=== PATIENT | female | born 1975 | race African-American/Black ===

== ENCOUNTER 2020-12-30 23:50 | Inpatient (IN) | payer OTHER ==
[~2020-12-30] VITALS: Ht 170.2 cm; Wt 73.5 kg
[2020-12-30] MEDS ORDERED: CHILDREN'S ASPI81 MG (23:59)
[2020-12-30] MEDS ORDERED: COZAAR100 MG (23:59)
[2020-12-30] MEDS ORDERED: LANTUS SOL100 UNIT/1 (23:59)
[2020-12-30] MEDS ORDERED: HUMALOG100 UNIT/2 (23:59)
[2020-12-30] MEDS ORDERED: LEVOTHYROXINE25 MCG (23:59)
[2020-12-31] MEDS ORDERED: LIPITOR20 MG (00:01)
[2020-12-31] MEDS ORDERED: HYDROCHLOROTH12.5 MG (00:01)
[2020-12-31] MEDS ORDERED: GLYCOTROL CAPS1 EACH (00:02)
[2021-01-25] MEDS ORDERED: LIPITOR20 MG PO (09:46)
[2021-01-25] MEDS ORDERED: AMLODIPINE BESYL5 MG PO (09:46)
[2021-01-25] MEDS ORDERED: TOPROL XL50 M1 PO (09:47)
[2021-01-25] MEDS ORDERED: HYDRALAZINE HCL25 MG PO (09:47)
[2021-01-25] MEDS ORDERED: KETO10TA2 PO (09:48)
== END 2021-01-25 10:26 | disposition home or self-care (01) | DRG 240 ==
LOC: ER 23:50 → SURH 12-31 14:51 → MEDI 12-31 14:51 → SEC-K 12-31 14:51 → SURH 12-31 15:32 → MEDI 01-04 16:45
PROVIDERS: Specialist; ADMIT Internal Medicine; ATTEND Internal Medicine
PROC: 0J9R3ZX Drainage of Left Foot Subcutaneous Tissue and Fascia, Percutaneous Approach, Diagnostic (ICD-10-PCS; 2021-01-04)
PROC: 02HV33Z Insertion of Infusion Device into Superior Vena Cava, Percutaneous Approach (ICD-10-PCS; 2021-01-05)
PROC: 30233N1 Transfusion of Nonautologous Red Blood Cells into Peripheral Vein, Percutaneous Approach (ICD-10-PCS; 2021-01-07)
PROC: 3E0F7SF Introduction of Other Gas into Respiratory Tract, Via Natural or Artificial Opening (ICD-10-PCS; 2021-01-09)
PROC: 0Y6N0Z9 Detachment at Left Foot, Partial 1st Ray, Open Approach (ICD-10-PCS; principal; 2021-01-15 16:00)
DX: E11.52 Type 2 diabetes mellitus with diabetic peripheral angiopathy with gangrene (principal); I96 Gangrene, not elsewhere classified; N17.8 Other acute kidney failure; L02.612 Cutaneous abscess of left foot; L03.116 Cellulitis of left lower limb; E03.8 Other specified hypothyroidism; I10 Essential (primary) hypertension; Z91.14 Patient's other noncompliance with medication regimen; Z20.822 Contact with and (suspected) exposure to COVID-19; Z79.4 Long term (current) use of insulin; E11.65 Type 2 diabetes mellitus with hyperglycemia; D50.8 Other iron deficiency anemias; B95.4 Other streptococcus as the cause of diseases classified elsewhere; R00.0 Tachycardia, unspecified

== ENCOUNTER 2021-02-28 08:06 | Outpatient (CLI) | payer OTHER ==
[~2021-02-28 08:06] MED LIST: AMLODIPINE BESYL5 MG PO; CHILDREN'S ASPI81 MG; COZAAR100 MG; GLYCOTROL CAPS1 EACH; HUMALOG100 UNIT/2; HYDRALAZINE HCL25 MG PO; HYDROCHLOROTH12.5 MG; KETO10TA2 PO; LANTUS SOL100 UNIT/1; LEVOTHYROXINE25 MCG; LIPITOR20 MG; LIPITOR20 MG PO; TOPROL XL50 M1 PO
== END 2021-02-28 08:15 | disposition home or self-care (01) ==
LOC: SONOGRAMA 08:06
PROVIDERS: ATTEND Internal Medicine Nephrology
DX: R10.84 Generalized abdominal pain (principal); R80.8 Other proteinuria; I10 Essential (primary) hypertension

== ENCOUNTER 2022-02-04 13:04 | Inpatient (IN) | payer OTHER ==
[~2022-02-04] VITALS: Ht 165.1 cm; Wt 81.6 kg
[2022-02-04] MEDS ORDERED: CHILDREN'S ASPI81 MG PO (14:18)
== END 2022-02-07 16:43 | disposition home or self-care (01) | DRG 638 ==
LOC: ER 13:04 → MEDJ 21:30
PROVIDERS: ADMIT Internal Medicine; ATTEND Internal Medicine
PROC: B54CZZZ Ultrasonography of Left Lower Extremity Veins (ICD-10-PCS; principal; 2022-02-04)
PROC: B44GZZZ Ultrasonography of Left Lower Extremity Arteries (ICD-10-PCS; 2022-02-04)
DX: E11.628 Type 2 diabetes mellitus with other skin complications (principal); L03.116 Cellulitis of left lower limb; N17.8 Other acute kidney failure; L03.032 Cellulitis of left toe; R60.0 Localized edema; E78.49 Other hyperlipidemia; E03.8 Other specified hypothyroidism; D72.828 Other elevated white blood cell count; Z79.4 Long term (current) use of insulin

== ENCOUNTER 2022-05-29 15:53 | Emergency (ER) | payer OTHER ==
[~2022-05-29] VITALS: Ht 165.1 cm; Wt 80.7 kg
[~2022-05-29 15:53] MED LIST changes: +CHILDREN'S ASPI81 MG PO
== END 2022-05-29 20:59 | disposition home or self-care (01) ==
LOC: ER 15:53
DX: R05.8 Other specified cough (principal); Z20.822 Contact with and (suspected) exposure to COVID-19; Z88.0 Allergy status to penicillin

== ENCOUNTER 2022-11-14 10:15 | Emergency (ER) | payer OTHER ==
[~2022-11-14] VITALS: Ht 165.1 cm; Wt 82.1 kg
[2022-11-14] MEDS ORDERED: LANTUS SOL100 UNIT/1 SUBCUTANEO (11:50)
== END 2022-11-14 15:50 | disposition home or self-care (01) ==
LOC: ER 10:15
PROVIDERS: Emergency Medicine
DX: I10 Essential (primary) hypertension (principal); E11.9 Type 2 diabetes mellitus without complications; Z79.4 Long term (current) use of insulin; Z88.0 Allergy status to penicillin

== ENCOUNTER → 2023-04-16 10:30 | Outpatient (CLI) | payer OTHER ==
[~2023-04-16 10:30] MED LIST changes: +LANTUS SOL100 UNIT/1 SUBCUTANEO; +LOSARTAN POTAS100 MG PO; +METOPROLOL SUCC50 MG PO; +NORVASC5 MG PO; +PIOGLITAZONE HC15 MG PO
== END | disposition home or self-care (01) ==
LOC: NUCLEAR 10:30
PROVIDERS: ATTEND Specialist
DX: I73.9 Peripheral vascular disease, unspecified (principal)

== ENCOUNTER 2023-04-17 10:33 | Outpatient (CLI) | payer OTHER ==
[~2023-04-17 10:33] MED LIST changes: -LOSARTAN POTAS100 MG PO; -METOPROLOL SUCC50 MG PO; -NORVASC5 MG PO; -PIOGLITAZONE HC15 MG PO
[2023-04-18] MEDS ORDERED: METOPROLOL SUCC50 MG PO (12:41)
[2023-04-18] MEDS ORDERED: NORVASC5 MG PO (12:42)
[2023-04-18] MEDS ORDERED: PIOGLITAZONE HC15 MG PO (12:42)
[2023-04-18] MEDS ORDERED: LOSARTAN POTAS100 MG PO (12:43)
== END 2023-04-17 10:34 | disposition home or self-care (01) ==
LOC: NUCLEAR 10:33
PROVIDERS: ATTEND Specialist
DX: I87.2 Venous insufficiency (chronic) (peripheral) (principal)

== ENCOUNTER → 2023-04-18 | Emergency (ER) | payer OTHER ==
[~2023-04-18] VITALS: Ht 170.2 cm; Wt 81.6 kg
[~2023-04-18] MED LIST changes: +LOSARTAN POTAS100 MG PO; +METOPROLOL SUCC50 MG PO; +NORVASC5 MG PO; +PIOGLITAZONE HC15 MG PO
== END | disposition left against medical advice (07) ==
LOC: ER 11:49
DX: Z53.21 Procedure and treatment not carried out due to patient leaving prior to being seen by health care provider (principal)

== ENCOUNTER 2024-12-23 09:38 | Inpatient (IN) | payer OTHER ==
[~2024-12-23] VITALS: Ht 162.6 cm; Wt 86.2 kg
[2024-12-23] MEDS ORDERED: LABETALOL HCL 20MG/4ML SYRINGE IV ONE (10:00)
[2024-12-23] MEDS ORDERED: COZAAR100 MG PO (10:02)
[2024-12-23] MEDS ORDERED: LABETALOL HCL 100 MG/20 ML ML ONE (10:02)
[2024-12-23] MEDS ORDERED: HUMALOG100 UNIT/2 SQ (10:03)
[2024-12-23] MEDS ORDERED: LANTUS SOL100 UNIT/1 SQ (10:03)
--- NOTE | 2024-12-23 10:04 | NUR ---
PACIENTE ALERTA Y ORIENTADA X3 QUIEN SE ENCONTRABA EN LA OFICINA MEDICA CUANDO LE TOMARON LA PRESION Y LA MISMA SE ENCONTRABA ELEVADA. PACIENTE NO PRESENTA DOLOR DE JASMEET, NI DOLOR DE PECHO, NI NAUCEAS. SE LE REALIZA EKG, SE LE PRESENTA A DR MACKEY Y SE UBICA PACIENTE EN CAMA, SE CONECTA A MONITOR CARDIACO.
[2024-12-23] MEDS ORDERED: INSULIN REGULAR, HUMAN 1,000 UNIT/10 ML UNITS IV ONE (10:15)
--- NOTE | 2024-12-23 10:33 | NUR ---
PTE EVALUADA POR EL VALENTINA PRESTON QUIEN ORDENA TRATAMEINTO LA CUAL SE EJECUTA. SE MANTIENE BAJO OBSERVACION.
[2024-12-23 10:37] LABS: BASO % 0.3 % (0.1-1.2); EOS # 0.20 (0.04-0.54); EOS % 2.1 % (0.7-7.0); LYMPH # 2.08 (1.18-3.74); LYMPH % 21.7 % (19.3-53.1); MONO # 0.78 (0.24-0.82); MONO % 8.1 % (4.7-12.5); NEUT # 6.44 (1.56-6.13); NEUT % 67.3 % (34.0-71.1); RED CELL DISTRIBUTION WIDTH 13.4 % (11.6-14.4)
[2024-12-23 10:58] LABS: INR 1.05
[2024-12-23] MEDS ORDERED: NITROGLYCERIN IN 5 % DEXTROSE 250 ML IV SCH (11:30)
[2024-12-23] MEDS ORDERED: ASPIRIN 325 MG TABLET PO ONE (11:30)
[2024-12-23] MEDS ORDERED: NITROGLYCERIN IN 5 % DEXTROSE 50 MG/250 ML BOTTLE IV ONE (11:35)
[2024-12-23 11:38] LABS: ALT/SGPT 30.0 U/L (12-78); AST/SGOT 24.0 U/L (15-37); BILIRUBIN TOTAL 0.21 mg/dL (0.3-1.2); BUN CREA RATIO 14.0 (7.0-25.0); CREATININE SERUM 2.57 mg/dL (0.55-1.02); GFR 19.67; GLOBULINA 4.4 G/DL (2.4-3.5); GLUCOSE FASTING 322.0 mg/dL (65-100); OSMOLALITY SERUM 297.0 MOSM/KG (275-295)
--- NOTE | 2024-12-23 12:23 | NUR ---
SE CANALIZA PACIENTE EN MANO IZQUIERDA # 22 SE COLOCA DRIP DE TRIDIL 50MG/250ML @ 3 ML/HR. SE ELIZABETH MUESTRAS DE LAB[facility]ATOR[facility] ORDENADAS. CT DE JASMEET YA REALIZADO. PENDIENTE A SER TRANSFERIDA A AREA DE CRITICOP
[2024-12-23] MEDS ORDERED: ASPIRIN 81 MG TABLET.EC PO SCH (12:27)
[2024-12-23] MEDS ORDERED: CLOPIDOGREL BISULFATE 75 MG TABLET PO SCH (12:27)
[2024-12-23] MEDS ORDERED: ATORVASTATIN CALCIUM 40 MG TABLET PO SCH (12:28)
[2024-12-23] MEDS ORDERED: DEXTROSE 50 % IN WATER 0.5 G/ML DISP.SYRIN IV PRN (12:30)
[2024-12-23] MEDS ORDERED: INSULIN LISPRO 1,000 UNIT/10 ML UNITS SUBCUTANEO PRN (12:30)
[2024-12-23] MEDS ORDERED: ENOXAPARIN SODIUM 100 MG/ML SYRINGE SUBCUTANEO SCH (12:42)
[2024-12-23] MEDS ORDERED: PANTOPRAZOLE SODIUM 40 MG in 0.9 % SODIUM CHLORIDE 8 ML IV PUSH SCH (12:46)
[2024-12-23] MEDS ORDERED: ACETAMINOPHEN 325 MG TABLET PO PRN (13:00)
[2024-12-23] MEDS ORDERED: CLOPIDOGREL BISULFATE 75 MG TABLET PO ONE (13:13)
[2024-12-23] MEDS ORDERED: ENOXAPARIN SODIUM 30 MG/0.3 ML SYRINGE SUBCUTANEO SCH (13:19)
[2024-12-23] MEDS ORDERED: ENOXAPARIN SODIUM 40 MG/0.4 ML SYRINGE SUBCUTANEO ONE (13:22)
[2024-12-23 13:26] LABS: ALT/SGPT 28.0 U/L (12-78); AST/SGOT 20.0 U/L (15-37); HDL 53.0 mg/dl (40-60); LDH 317.0 U/L (84-246); PHOSPHOKINASE CREATININE 338.0 U/L (26-192)
[2024-12-23 13:27] VITALS: BP 180/78
[2024-12-23 13:37] LABS: CKMB 6.5 NG/ML (0.5-3.6); LDL 442.0 mg/dl (0-130); VLDL 108.0 (0-39)
[2024-12-23 13:38] LABS: TSH 5.77 uIU/mL (0.358-3.74)
[2024-12-23 13:40] VITALS: BP 180/78; O2SAT 100
[2024-12-23 13:41] LABS: CHOL HDL RATIO 11.3 (0-5.0)
[2024-12-23 14:08] LABS: URINE APPEARANCE Cloudy; URINE BILIRRUBIN Negative (NEGATIVE); URINE BLOOD Moderate; URINE COLOR Yellow; URINE KETONE Negative (NEGATIVE); URINE LEUKOCYTE Negative; URINE NITRATE Negative; URINE PROTEIN >=1000 (NEGATIVE); URINE UROBILINOGEN 0.2 E.U./dl
[2024-12-23 14:09] LABS: URINE BACTERIA 2200.6 uL (0.0-1933); URINE CAST 10.26 uL (0.0-1.40); URINE EPITHELIAL CELLS 47.0 uL (0.0-38.8); URINE RBC 12.9 uL (0.0-20.8); URINE WBC 152.1 uL (0.0-23.2)
[2024-12-23 14:25] LABS: TYPE CELLS SQUAMOUS; URINE GLUCOSE >=1000 MG/DL (NEGATIVE)
[2024-12-23 14:26] LABS: URINE YEAST FEW /hpf
[2024-12-23 14:31] LABS: ABG PH 7.427 (7.35-7.45); ABG PO2 102.7 mmHg (80-100); BICARBONATE 21.1 mmol/l (23-25)
[2024-12-23 14:37] LABS: o2 21 %
[2024-12-23 15:34] LABS: HDL 43.0 mg/dl (40-60); VLDL 123.0 (0-39)
[2024-12-23 15:35] LABS: ALT/SGPT 26 U/L (12-78); AST/SGOT 17 U/L (15-37); LDH 253 U/L (84-246); PHOSPHOKINASE CREATININE 295 U/L (26-192)
[2024-12-23 15:36] LABS: CHOL HDL RATIO 12.9 (0-5.0); LDL 387.0 mg/dl (0-130)
[2024-12-23 15:58] VITALS: BP 186/90; O2SAT 100
[2024-12-23] MEDS ORDERED: AMLODIPINE BESYLATE 5 MG TABLET PO SCH (17:37)
[2024-12-23] MEDS ORDERED: hydrALAZINE HCL 20 MG VIAL IV PRN (17:45)
[2024-12-23 18:03] VITALS: BP 193/104; O2SAT 100
[2024-12-23 19:29] VITALS: BP 167/1
[2024-12-23] MEDS ORDERED: METOPROLOL SUCCINATE 25 MG TAB.SR.24H PO SCH (21:00)
[2024-12-23 22:37] VITALS: BP 164/85
[2024-12-24 02:43] VITALS: BP 164/89; O2SAT 98
[2024-12-24 05:41] LABS: BASO % 0.6 % (0.1-1.2); EOS # 0.23 (0.04-0.54); EOS % 2.7 % (0.7-7.0); LYMPH # 1.97 (1.18-3.74); LYMPH % 23.0 % (19.3-53.1); MEAN PLATELET VOLUME 11.80 fl (9.4-12.4); MONO # 1.01 (0.24-0.82); MONO % 11.8 % (4.7-12.5); NEUT # 5.26 (1.56-6.13); NEUT % 61.5 % (34.0-71.1); RED CELL DISTRIBUTION WIDTH 13.6 % (11.6-14.4)
[2024-12-24] MEDS ORDERED: LEVOTHYROXINE SODIUM 50 MCG TABLET PO SCH (06:00)
[2024-12-24 06:36] LABS: ALT/SGPT 19.0 U/L (12-78); AST/SGOT 13.0 U/L (15-37); BILIRUBIN TOTAL 0.19 mg/dL (0.3-1.2); BUN CREA RATIO 16.0 (7.0-25.0); CREATININE SERUM 2.6 mg/dL (0.55-1.02); GFR 19.4; GLOBULINA 3.2 G/DL (2.4-3.5); GLUCOSE FASTING 160.0 mg/dL (65-100); OSMOLALITY SERUM 293.0 MOSM/KG (275-295); PHOSPHOKINASE CREATININE 278.0 U/L (26-192)
[2024-12-24] MEDS ORDERED: MAGNESIUM SULFATE IN WATER 50 ML IV NR (08:20)
[2024-12-24 08:43] VITALS: BP 121/63
[2024-12-24] MEDS ORDERED: 0.9 % SODIUM CHLORIDE 500 ML IV SCH (09:00)
[2024-12-24] MEDS ORDERED: LOSARTAN POTASSIUM 100 MG TABLET PO SCH (09:00)
[2024-12-24] MEDS ORDERED: ENOXAPARIN SODIUM 100 MG/ML SYRINGE SUBCUTANEO SCH (09:00)
[2024-12-24] MEDS ORDERED: DEXTROSE 50 % IN WATER 0.5 G/ML VIAL IV PRN (09:45)
[2024-12-24 15:14] LABS: BASO % 0.4 % (0.1-1.2); EOS # 0.18 (0.04-0.54); EOS % 1.9 % (0.7-7.0); LYMPH # 1.51 (1.18-3.74); LYMPH % 16.0 % (19.3-53.1); MEAN PLATELET VOLUME 12.70 fl (9.4-12.4); MONO # 0.98 (0.24-0.82); MONO % 10.4 % (4.7-12.5); NEUT # 6.68 (1.56-6.13); NEUT % 70.8 % (34.0-71.1); RED CELL DISTRIBUTION WIDTH 13.8 % (11.6-14.4)
[2024-12-24] MEDS ORDERED: AMINO ACIDS/PROTEIN HYDROLYS 30 ML BLIST.PACK PO SCH (17:00)
[2024-12-24 20:26] VITALS: BP 152/77; O2SAT 100
[2024-12-25 01:51] VITALS: BP 126/71; O2SAT 97
[2024-12-25 08:28] LABS: ALT/SGPT 17.0 U/L (12-78); AST/SGOT 12.0 U/L (15-37); BILIRUBIN TOTAL 0.19 mg/dL (0.3-1.2); BUN CREA RATIO 15.0 (7.0-25.0); CREATININE SERUM 2.99 mg/dL (0.55-1.02); GFR 16.51; GLOBULINA 3.3 G/DL (2.4-3.5); OSMOLALITY SERUM 302.0 MOSM/KG (275-295)
[2024-12-25 08:29] LABS: GLUCOSE FASTING 258.0 mg/dL (65-100)
[2024-12-25] MEDS ORDERED: AMLODIPINE BESYLATE 10 MG TABLET PO SCH (09:00)
[2024-12-25 09:20] VITALS: BP 143/77
[2024-12-25 14:19] LABS: BASO % 0.3 % (0.1-1.2); EOS # 0.15 (0.04-0.54); EOS % 1.6 % (0.7-7.0); LYMPH # 1.44 (1.18-3.74); LYMPH % 15.2 % (19.3-53.1); MEAN PLATELET VOLUME 13.00 fl (9.4-12.4); MONO # 1.04 (0.24-0.82); MONO % 11.0 % (4.7-12.5); NEUT # 6.75 (1.56-6.13); NEUT % 71.5 % (34.0-71.1); RED CELL DISTRIBUTION WIDTH 14.0 % (11.6-14.4)
[2024-12-25 18:00] VITALS: BP 157/84
[2024-12-25] MEDS ORDERED: DOXAZOSIN MESYLATE 2 MG TABLET PO SCH (21:00)
[2024-12-26 00:49] VITALS: BP 148/72
[2024-12-26 06:25] LABS: ALT/SGPT 18.0 U/L (12-78); AST/SGOT 17.0 U/L (15-37); BILIRUBIN TOTAL 0.23 mg/dL (0.3-1.2); BUN CREA RATIO 21.0 (7.0-25.0); CREATININE SERUM 2.51 mg/dL (0.55-1.02); GFR 20.21; GLOBULINA 3.5 G/DL (2.4-3.5); OSMOLALITY SERUM 304.0 MOSM/KG (275-295)
[2024-12-26 06:32] LABS: GLUCOSE FASTING 254.0 mg/dL (65-100)
[2024-12-26] MEDS ORDERED: Cyanocobalamin/Mecobalamin 1 TAB.SL SL SCH (09:00)
[2024-12-26] MEDS ORDERED: SOD FERRIC GLUC COMPLX/SUCROSE 62.5 MG in 0.9 % SODIUM CHLORIDE 50 ML IV SCH (09:00)
[2024-12-26] MEDS ORDERED: METOPROLOL SUCCINATE 25 MG TAB.SR.24H PO SCH (09:00)
[2024-12-26 09:24] VITALS: BP 122/72
[2024-12-26] MEDS ORDERED: INSULIN LISPRO 1,000 UNIT/10 ML UNITS SUBCUTANEO SCH (12:00)
[2024-12-26 18:31] VITALS: BP 133/76
[2024-12-27 01:01] VITALS: BP 122/74; O2SAT 96
[2024-12-27 08:00] VITALS: BP 159/88; O2SAT 97
[2024-12-27] MEDS ORDERED: INSULIN LISPRO 1,000 UNIT/10 ML UNITS SUBCUTANEO SCH (08:00)
[2024-12-27] MEDS ORDERED: INSULIN GLARGINE,HUM.REC.ANLOG 1,000 UNITS/10 ML UNITS SUBCUTANEO SCH (09:00)
[2024-12-27 20:02] VITALS: BP 115/68
[2024-12-28 02:12] VITALS: BP 118/75; O2SAT 96
[2024-12-28] MEDS ORDERED: LEVOTHYROXINE SODIUM 75 MCG TABLET PO SCH (06:00)
[2024-12-28 08:43] VITALS: BP 139/74
[2024-12-28] MEDS ORDERED: PANTOPRAZOLE SODIUM 40 MG TABLET.DR PO SCH (17:00)
[2024-12-28 19:02] VITALS: BP 160/89; O2SAT 99
[2024-12-28 19:20] LABS: BASO % 0.3 % (0.1-1.2); EOS # 0.25 (0.04-0.54); EOS % 2.6 % (0.7-7.0); LYMPH # 1.37 (1.18-3.74); LYMPH % 14.5 % (19.3-53.1); MEAN PLATELET VOLUME 11.40 fl (9.4-12.4); MONO # 1.19 (0.24-0.82); NEUT # 6.55 (1.56-6.13); NEUT % 69.5 % (34.0-71.1); RED CELL DISTRIBUTION WIDTH 14.3 % (11.6-14.4)
[2024-12-28 19:33] LABS: MONO % 12.6 % (4.7-12.5)
[2024-12-28 20:28] LABS: ALT/SGPT 34.0 U/L (12-78); AST/SGOT 44.0 U/L (15-37); BILIRUBIN TOTAL 0.17 mg/dL (0.3-1.2); BUN CREA RATIO 24.0 (7.0-25.0); CREATININE SERUM 2.67 mg/dL (0.55-1.02); GFR 18.82; GLOBULINA 4.2 G/DL (2.4-3.5); GLUCOSE FASTING 190.0 mg/dL (65-100); OSMOLALITY SERUM 303.0 MOSM/KG (275-295)
[2024-12-29 02:17] VITALS: BP 151/83; O2SAT 97
[2024-12-29] MEDS ORDERED: 0.9 % SODIUM CHLORIDE 500 ML IV SCH (07:45)
[2024-12-29] MEDS ORDERED: INSULIN LISPRO 1,000 UNIT/10 ML UNITS SUBCUTANEO SCH (08:00)
[2024-12-29] MEDS ORDERED: INSULIN GLARGINE,HUM.REC.ANLOG 1,000 UNITS/10 ML UNITS SUBCUTANEO SCH (09:00)
[2024-12-29 09:16] VITALS: BP 142/85; O2SAT 97
[2024-12-29] MEDS ORDERED: ST. JOSEPH ASPI81 M2 PO (18:08)
[2024-12-29] MEDS ORDERED: INSULIN LI100 UNIT/1 SUBCUTANEO (18:08)
[2024-12-29] MEDS ORDERED: Neurin-Sl Tablet Sl SL (18:08)
[2024-12-29] MEDS ORDERED: AMLODIPINE BESY10 MG PO (18:08)
[2024-12-29] MEDS ORDERED: LIPITOR40 M1 PO (18:08)
[2024-12-29] MEDS ORDERED: LEVOTHYROXINE75 MCG PO (18:08)
[2024-12-29] MEDS ORDERED: DOXAZOSIN MESYLA2 MG PO (18:08)
[2024-12-29] MEDS ORDERED: PANTOPRAZOLE SO40 MG PO (18:08)
[2024-12-29] MEDS ORDERED: INTEGRA PLUS C1 EACH PO (18:08)
[2024-12-29] MEDS ORDERED: TOPROL XL25 M1 PO (18:08)
[2024-12-29] MEDS ORDERED: Lantus 1000 UNITS/10 SUBCUTANEO (18:08)
[2024-12-29] MEDS ORDERED: LOSARTAN POTAS100 MG PO (18:08)
== END 2024-12-29 18:19 | disposition home or self-care (01) | DRG 281 ==
LOC: ER 09:39 → MEDI 14:07 → SEC-K 14:07 → MEDI 14:27
PROVIDERS: General Practice; Internal Medicine; Internal Medicine Cardiovascular Disease; Internal Medicine Nephrology; Preventive Medicine Public Health & General Preventive Medicine; ADMIT Internal Medicine; ATTEND Internal Medicine
PROC: B020ZZZ Computerized Tomography (CT Scan) of Brain (ICD-10-PCS; principal; 2024-12-23)
PROC: 4A033R1 Measurement of Arterial Saturation, Peripheral, Percutaneous Approach (ICD-10-PCS; 2024-12-23)
PROC: 4A12X4Z Monitoring of Cardiac Electrical Activity, External Approach (ICD-10-PCS; 2024-12-24)
PROC: B246ZZZ Ultrasonography of Right and Left Heart (ICD-10-PCS; 2024-12-24)
PROC: 30233N1 Transfusion of Nonautologous Red Blood Cells into Peripheral Vein, Percutaneous Approach (ICD-10-PCS; 2024-12-28)
DX: I16.0 Hypertensive urgency (principal); N17.9 Acute kidney failure, unspecified; I21.3 ST elevation (STEMI) myocardial infarction of unspecified site; I21.4 Non-ST elevation (NSTEMI) myocardial infarction; E11.65 Type 2 diabetes mellitus with hyperglycemia; E78.5 Hyperlipidemia, unspecified; E03.9 Hypothyroidism, unspecified; D64.9 Anemia, unspecified; E66.9 Obesity, unspecified; Z79.4 Long term (current) use of insulin

== ENCOUNTER 2025-01-06 13:36 | Emergency (ER) | payer OTHER ==
[~2025-01-06] VITALS: Ht 170.2 cm; Wt 86.2 kg
[~2025-01-06 13:36] MED LIST changes: +AMLODIPINE BESY10 MG PO; +COZAAR100 MG PO; +DOXAZOSIN MESYLA2 MG PO; +HUMALOG100 UNIT/2 SQ; +INSULIN LI100 UNIT/1 SUBCUTANEO; +INTEGRA PLUS C1 EACH PO; +LANTUS SOL100 UNIT/1 SQ; +LEVOTHYROXINE75 MCG PO; +LIPITOR40 M1 PO; +Lantus 1000 UNITS/10 SUBCUTANEO; +Neurin-Sl Tablet Sl SL; +PANTOPRAZOLE SO40 MG PO; +ST. JOSEPH ASPI81 M2 PO; +TOPROL XL25 M1 PO
[2025-01-06] MEDS ORDERED: FAMOTIDINE/PF 20 MG/2 ML VIAL IV ONE (15:30)
[2025-01-06] MEDS ORDERED: KETOROLAC TROMETHAMINE 30 MG VIAL IU ONE (15:30)
[2025-01-06] MEDS ORDERED: ENOXAPARIN SODIUM 80 MG/0.8 ML SYRINGE SUBCUTANEO ONE ×2 (15:30→17:33)
[2025-01-06] MEDS ORDERED: 0.9 % SODIUM CHLORIDE 1,000 ML IV SCH (15:30)
[2025-01-06] MEDS ORDERED: ENALAPRILAT DIHYDRATE 1.25 MG/ML VIAL IV ONE ×2 (15:30→17:33)
[2025-01-06] MEDS ORDERED: KETOROLAC TROMETHAMINE 30 MG VIAL ONE (17:33)
[2025-01-06] MEDS ORDERED: FAMOTIDINE/PF 20 MG/2 ML VIAL ONE (17:33)
[2025-01-06 18:22] LABS: BASO % 0.5 % (0.1-1.2); EOS # 0.37 (0.04-0.54); EOS % 3.3 % (0.7-7.0); LYMPH # 1.66 (1.18-3.74); LYMPH % 14.7 % (19.3-53.1); MEAN PLATELET VOLUME 11.90 fl (9.4-12.4); MONO # 0.82 (0.24-0.82); MONO % 7.3 % (4.7-12.5); NEUT # 8.35 (1.56-6.13); NEUT % 73.9 % (34.0-71.1); RED CELL DISTRIBUTION WIDTH 13.8 % (11.6-14.4)
[2025-01-06 18:46] LABS: ALT/SGPT 56.0 U/L (12-78); AST/SGOT 33.0 U/L (15-37); BILIRUBIN TOTAL 0.4 mg/dL (0.3-1.2); BUN CREA RATIO 15.0 (7.0-25.0); CREATININE SERUM 2.69 mg/dL (0.55-1.02); GFR 18.66; GLOBULINA 6.0 G/DL (2.4-3.5)
[2025-01-06 18:48] LABS: ERYTHROCYTE SEDIMENTATION RATE > 130 mm/hr (0-30)
[2025-01-06 18:49] LABS: OSMOLALITY SERUM 294.0 MOSM/KG (275-295)
[2025-01-06 18:50] LABS: GLUCOSE FASTING 317.0 mg/dL (65-100)
[2025-01-06] MEDS ORDERED: CEFAZOLIN SODIUM 1,000 MG VIAL IV ONE (19:30)
[2025-01-06] MEDS ORDERED: AVIDOXY100 MG PO (19:48)
[2025-01-06] MEDS ORDERED: CEFAZOLIN SODIUM 1,000 MG VIAL ONE (19:59)
== END 2025-01-06 22:09 | disposition home or self-care (01) ==
LOC: ER 13:37
PROVIDERS: Student in an Organized Health Care Education/Training Program
DX: L03.113 Cellulitis of right upper limb (principal); E11.9 Type 2 diabetes mellitus without complications; Z79.4 Long term (current) use of insulin; E03.9 Hypothyroidism, unspecified; Z88.0 Allergy status to penicillin

== ENCOUNTER 2025-01-12 11:02 | Inpatient (IN) | payer OTHER ==
[~2025-01-12] VITALS: Ht 165.1 cm; Wt 86.2 kg
[~2025-01-12 11:02] MED LIST changes: +AVIDOXY100 MG PO
[2025-01-12] MEDS ORDERED: MORPHINE SULFATE 2 MG/ML SYRINGE IV ONE (12:15)
[2025-01-12] MEDS ORDERED: FAMOTIDINE/PF 20 MG/2 ML VIAL IV ONE (12:15)
[2025-01-12] MEDS ORDERED: 0.9 % SODIUM CHLORIDE 1,000 ML IV SCH (12:15)
[2025-01-12] MEDS ORDERED: PIPERACILLIN/TAZOBACTAM SODIUM 3.375 GM VIAL IV ONE ×2 (12:15→12:16)
[2025-01-12] MEDS ORDERED: VANCOMYCIN HCL 1,000 MG VIAL IV ONE (12:15)
[2025-01-12] MEDS ORDERED: VANCOMYCIN HCL 1,000 MG VIAL ONE (12:16)
[2025-01-12] MEDS ORDERED: FAMOTIDINE/PF 20 MG/2 ML VIAL ONE ×2 (12:17→17:03)
[2025-01-12 13:26] LABS: BASO % 0.3 % (0.1-1.2); EOS # 0.30 (0.04-0.54); EOS % 2.0 % (0.7-7.0); LYMPH # 1.43 (1.18-3.74); LYMPH % 9.6 % (19.3-53.1); MEAN PLATELET VOLUME 12.10 fl (9.4-12.4); MONO # 1.49 (0.24-0.82); MONO % 10.0 % (4.7-12.5); NEUT # 11.52 (1.56-6.13); NEUT % 77.4 % (34.0-71.1); RED CELL DISTRIBUTION WIDTH 13.9 % (11.6-14.4)
[2025-01-12 13:32] LABS: ERYTHROCYTE SEDIMENTATION RATE > 130 mm/hr (0-30)
[2025-01-12 14:32] LABS: ALT/SGPT 26.0 U/L (12-78); AST/SGOT 15.0 U/L (15-37); BILIRUBIN TOTAL 0.27 mg/dL (0.3-1.2); BUN CREA RATIO 14.0 (7.0-25.0); CREATININE SERUM 3.11 mg/dL (0.55-1.02); GFR 15.78; GLOBULINA 4.7 G/DL (2.4-3.5)
[2025-01-12 14:33] LABS: GLUCOSE FASTING 398.0 mg/dL (65-100); OSMOLALITY SERUM 298.0 MOSM/KG (275-295)
[2025-01-12] MEDS ORDERED: PIPERACILLIN/TAZOBACTAM SODIUM 3.375 GM in 0.9 % SODIUM CHLORIDE 100 ML IV SCH (15:54)
[2025-01-12] MEDS ORDERED: AMLODIPINE BESYLATE 10 MG TABLET PO SCH (16:09)
[2025-01-12] MEDS ORDERED: METOPROLOL TARTRATE 25 MG TABLET PO SCH (16:09)
[2025-01-12] MEDS ORDERED: LOSARTAN POTASSIUM 100 MG TABLET PO SCH (16:09)
[2025-01-12] MEDS ORDERED: ATORVASTATIN CALCIUM 40 MG TABLET PO SCH (16:10)
[2025-01-12] MEDS ORDERED: ACETAMINOPHEN 325 MG TABLET PO PRN (16:15)
[2025-01-12] MEDS ORDERED: DEXTROSE 50 % IN WATER 0.5 G/ML DISP.SYRIN IV PRN (16:15)
[2025-01-12] MEDS ORDERED: MORPHINE SULFATE 2 MG/ML SYRINGE IV PRN (16:15)
[2025-01-12] MEDS ORDERED: INSULIN LISPRO 1,000 UNIT/10 ML UNITS SUBCUTANEO PRN (16:15)
[2025-01-12] MEDS ORDERED: DOXAZOSIN MESYLATE 2 MG TABLET PO SCH (16:16)
[2025-01-12] MEDS ORDERED: FAMOTIDINE/PF 20 MG in 0.9 % SODIUM CHLORIDE 8 ML IV PUSH SCH (16:19)
[2025-01-12] MEDS ORDERED: ENOXAPARIN SODIUM 30 MG/0.3 ML SYRINGE SUBCUTANEO SCH (16:19)
[2025-01-12] MEDS ORDERED: ASPIRIN 81 MG TABLET.EC PO SCH (16:19)
[2025-01-12 16:39] VITALS: BP 148/79
[2025-01-12 17:13] VITALS: BP 165/90; O2SAT 99
[2025-01-12 17:52] LABS: INR 1.15
[2025-01-12 18:36] VITALS: BP 152/84; O2SAT 98
[2025-01-12 21:07] LABS: URINE APPEARANCE Cloudy; URINE BILIRRUBIN Negative (NEGATIVE); URINE BLOOD Trace; URINE COLOR Yellow; URINE KETONE Negative (NEGATIVE); URINE LEUKOCYTE Negative; URINE NITRATE Negative; URINE PROTEIN >=1000 (NEGATIVE); URINE UROBILINOGEN 0.2 E.U./dl
[2025-01-12 21:12] LABS: URINE CAST 18.91 uL (0.0-1.40); URINE EPITHELIAL CELLS 100.1 uL (0.0-38.8); URINE RBC 7.7 uL (0.0-20.8); URINE WBC 19.0 uL (0.0-23.2)
[2025-01-12 22:00] LABS: URINE GLUCOSE >=1000 MG/DL (NEGATIVE)
[2025-01-12 22:01] LABS: TYPE CELLS SQUAMOUS; URINE MUCUS SCANT
[2025-01-13 02:39] VITALS: BP 124/73; O2SAT 97
[2025-01-13] MEDS ORDERED: LEVOTHYROXINE SODIUM 75 MCG TABLET PO SCH (06:00)
[2025-01-13] MEDS ORDERED: LINEZOLID IN DEXTROSE 5% 600 MG/300 ML PIGGYBAG IV STA (10:26)
[2025-01-13] MEDS ORDERED: CHLORHEXIDINE GLUCONATE 240 ML BOTTLE TOP SCH (10:27)
[2025-01-13 10:46] VITALS: BP 112/71; O2SAT 97
[2025-01-13] MEDS ORDERED: AZTREONAM 1,000 MG VIAL IV NR (13:00)
[2025-01-13] MEDS ORDERED: AMINO ACIDS/PROTEIN HYDROLYS 30 ML BLIST.PACK PO SCH (17:00)
[2025-01-13] MEDS ORDERED: LACTOBACILLUS ACIDOPHILUS 1 CAP CAP PO SCH (17:00)
[2025-01-13 18:31] VITALS: BP 122/70; O2SAT 98
[2025-01-13] MEDS ORDERED: LINEZOLID IN DEXTROSE 5% 600 MG/300 ML PIGGYBAG IV SCH (21:00)
[2025-01-13] MEDS ORDERED: AZTREONAM 1,000 MG VIAL IV SCH (21:00)
[2025-01-13] MEDS ORDERED: KETOROLAC TROMETHAMINE 30 MG VIAL IM PRN (21:15)
[2025-01-14 02:43] VITALS: BP 115/71; O2SAT 95
[2025-01-14 06:43] LABS: ALT/SGPT 19.0 U/L (12-78); AST/SGOT 15.0 U/L (15-37); BILIRUBIN TOTAL 0.13 mg/dL (0.3-1.2); BUN CREA RATIO 14.0 (7.0-25.0); CREATININE SERUM 3.47 mg/dL (0.55-1.02); GFR 13.91; GLOBULINA 3.9 G/DL (2.4-3.5); GLUCOSE FASTING 259.0 mg/dL (65-100); OSMOLALITY SERUM 302.0 MOSM/KG (275-295)
[2025-01-14] MEDS ORDERED: INSULIN LISPRO 1,000 UNIT/10 ML UNITS SUBCUTANEO SCH (08:00)
[2025-01-14] MEDS ORDERED: INSULIN GLARGINE,HUM.REC.ANLOG 1,000 UNITS/10 ML UNITS SUBCUTANEO SCH (09:00)
[2025-01-14 10:30] VITALS: BP 136/72; O2SAT 97
[2025-01-14 18:41] VITALS: BP 112/67
[2025-01-15 02:56] VITALS: BP 99/70; O2SAT 97
[2025-01-15 09:41] VITALS: BP 137/89; O2SAT 98
[2025-01-15 19:46] VITALS: BP 92/68
[2025-01-16 01:38] VITALS: BP 120/75; O2SAT 97
[2025-01-16 10:28] VITALS: BP 138/79; O2SAT 99
[2025-01-16 19:27] VITALS: BP 143/86
[2025-01-16] MEDS ORDERED: LEVALBUTEROL HCL 0.63 MG/3 ML SOLUTION IH SCH (22:00)
[2025-01-17] VITALS (8 sets, daily range): BP systolic 115–170; BP diastolic 75–80; O2SAT 97–100
[2025-01-17 06:23] LABS: BASO % 0.5 % (0.1-1.2); EOS # 0.30 (0.04-0.54); EOS % 2.9 % (0.7-7.0); LYMPH # 1.70 (1.18-3.74); LYMPH % 16.3 % (19.3-53.1); MEAN PLATELET VOLUME 11.90 fl (9.4-12.4); MONO # 1.53 (0.24-0.82); NEUT # 6.81 (1.56-6.13); NEUT % 65.0 % (34.0-71.1); RED CELL DISTRIBUTION WIDTH 14.3 % (11.6-14.4)
[2025-01-17 07:01] LABS: MONO % 14.6 % (4.7-12.5)
[2025-01-17] MEDS ORDERED: INSULIN LISPRO 1,000 UNIT/10 ML UNITS SUBCUTANEO SCH (12:00)
[2025-01-18] VITALS (7 sets, daily range): BP systolic 138–144; BP diastolic 80–83; O2SAT 98–100
[2025-01-18 07:02] LABS: ALT/SGPT 35 U/L (12-78); AST/SGOT 45 U/L (15-37); BUN CREA RATIO 19 (7.0-25.0); CREATININE SERUM 3.43 mg/dL (0.55-1.02); GFR 14.10; GLOBULINA 3.8 G/DL (2.4-3.5)
[2025-01-18 07:05] LABS: BILIRUBIN TOTAL < 0.10 mg/dL (0.3-1.2); OSMOLALITY SERUM 304 MOSM/KG (275-295)
[2025-01-18 07:06] LABS: GLUCOSE FASTING 205 mg/dL (65-100)
[2025-01-18] MEDS ORDERED: INSULIN LISPRO 1,000 UNIT/10 ML UNITS SUBCUTANEO SCH (08:00)
[2025-01-18] MEDS ORDERED: AZTREONAM 2,000 MG VIAL IV SCH (09:00)
[2025-01-18] MEDS ORDERED: MORPHINE SULFATE 2 MG/ML SYRINGE IV PRN (16:15)
[2025-01-19] VITALS (8 sets, daily range): BP systolic 110–130; BP diastolic 60–83; O2SAT 99–100
[2025-01-20] VITALS (8 sets, daily range): BP systolic 131–152; BP diastolic 80–89; O2SAT 96–100
[2025-01-21] VITALS (7 sets, daily range): BP systolic 137–152; BP diastolic 80–81; O2SAT 95–100
[2025-01-22] VITALS (8 sets, daily range): BP systolic 127–160; BP diastolic 65–84; O2SAT 96–98
[2025-01-22] MEDS ORDERED: BUMETANIDE 2.5 MG/10 ML VIAL IV SCH (17:27)
[2025-01-22] MEDS ORDERED: DOXAZOSIN MESYLATE 2 MG TABLET PO SCH (21:00)
[2025-01-23] VITALS (7 sets, daily range): BP systolic 125–170; BP diastolic 83–90; O2SAT 99–100
[2025-01-23 07:43] LABS: BASO % 0.7 % (0.1-1.2); EOS # 0.27 (0.04-0.54); EOS % 3.6 % (0.7-7.0); LYMPH # 1.27 (1.18-3.74); LYMPH % 17.1 % (19.3-53.1); MEAN PLATELET VOLUME 10.00 fl (9.4-12.4); MONO # 1.21 (0.24-0.82); NEUT # 4.61 (1.56-6.13); NEUT % 62.0 % (34.0-71.1); RED CELL DISTRIBUTION WIDTH 15.0 % (11.6-14.4)
[2025-01-23 08:00] LABS: MONO % 16.3 % (4.7-12.5)
[2025-01-23 08:48] LABS: ALT/SGPT 208.0 U/L (12-78); AST/SGOT 338.0 U/L (15-37); BILIRUBIN TOTAL 0.24 mg/dL (0.3-1.2); BUN CREA RATIO 27.0 (7.0-25.0); CREATININE SERUM 3.32 mg/dL (0.55-1.02); GFR 14.64; GLOBULINA 4.0 G/DL (2.4-3.5); GLUCOSE FASTING 98.0 mg/dL (65-100); OSMOLALITY SERUM 311.0 MOSM/KG (275-295); TSH 3.4 uIU/mL (0.358-3.74)
[2025-01-23 08:53] LABS: ERYTHROCYTE SEDIMENTATION RATE > 130 mm/hr (0-30)
[2025-01-23] MEDS ORDERED: BUMETANIDE 2.5 MG/10 ML VIAL IV SCH (17:00)
[2025-01-24] VITALS (8 sets, daily range): BP systolic 153–159; BP diastolic 77–84; O2SAT 97–100
[2025-01-24 10:52] LABS: BASO % 0.6 % (0.1-1.2); EOS # 0.25 (0.04-0.54); EOS % 2.8 % (0.7-7.0); LYMPH # 0.89 (1.18-3.74); LYMPH % 10.1 % (19.3-53.1); MEAN PLATELET VOLUME 9.80 fl (9.4-12.4); MONO # 1.05 (0.24-0.82); MONO % 11.9 % (4.7-12.5); NEUT # 6.57 (1.56-6.13); NEUT % 74.3 % (34.0-71.1); RED CELL DISTRIBUTION WIDTH 15.1 % (11.6-14.4)
[2025-01-24 11:45] LABS: ALT/SGPT 318.0 U/L (12-78); AST/SGOT 530.0 U/L (15-37); BILIRUBIN TOTAL 0.28 mg/dL (0.3-1.2); CREATININE SERUM 3.14 mg/dL (0.55-1.02); GFR 15.61; GLOBULINA 3.9 G/DL (2.4-3.5); GLUCOSE FASTING 123.0 mg/dL (65-100)
[2025-01-24 11:47] LABS: BUN CREA RATIO 27.0 (7.0-25.0); OSMOLALITY SERUM 310.0 MOSM/KG (275-295)
[2025-01-24] MEDS ORDERED: METOLAZONE 5 MG TABLET PO NR (13:15)
[2025-01-25] VITALS (9 sets, daily range): BP systolic 175–190; BP diastolic 90–97; O2SAT 90–100
[2025-01-25] MEDS ORDERED: NIFEDIPINE 30 MG TAB.SA.OSM PO SCH (09:00)
[2025-01-25] MEDS ORDERED: METOLAZONE 5 MG TABLET PO SCH (09:00)
[2025-01-25] MEDS ORDERED: hydrALAZINE HCL 20 MG VIAL ONE (09:13)
[2025-01-25] MEDS ORDERED: hydrALAZINE HCL 20 MG VIAL IV PRN (11:30)
[2025-01-26] VITALS (9 sets, daily range): BP systolic 149–170; BP diastolic 82–87; O2SAT 96–99
[2025-01-26] MEDS ORDERED: AMINO ACIDS/PROTEIN HYDROLYS 30 ML BLIST.PACK PO SCH (09:00)
[2025-01-26] MEDS ORDERED: BUMETANIDE 2.5 MG/10 ML VIAL IV SCH (09:00)
[2025-01-26 14:44] LABS: BASO % 0.5 % (0.1-1.2); EOS # 0.19 (0.04-0.54); EOS % 1.7 % (0.7-7.0); LYMPH # 0.98 (1.18-3.74); LYMPH % 8.6 % (19.3-53.1); MEAN PLATELET VOLUME 9.60 fl (9.4-12.4); MONO # 1.17 (0.24-0.82); MONO % 10.3 % (4.7-12.5); NEUT # 8.94 (1.56-6.13); NEUT % 78.5 % (34.0-71.1); RED CELL DISTRIBUTION WIDTH 14.6 % (11.6-14.4)
[2025-01-26] MEDS ORDERED: IRON FUM,PS/FOLIC ACID/VITC/B3 1 CAP CAPSULE PO NR (14:45)
[2025-01-26] MEDS ORDERED: Cyanocobalamin/Mecobalamin 1 TAB.SL SL NR (14:45)
[2025-01-26] MEDS ORDERED: SOD FERRIC GLUC COMPLX/SUCROSE 62.5 MG/5 ML AMPUL IV SCH (17:00)
[2025-01-26] MEDS ORDERED: IOVERSOL 320 MG/ML - 50 ML VIAL IV ONE (18:42)
[2025-01-26] MEDS ORDERED: LIDOCAINE HCL 1% 20 ML VIAL IJ ONE (18:42)
[2025-01-26] MEDS ORDERED: HEPARIN SODIUM,PORCINE/PF 100 UNIT/ML SYRINGE IV ONE (18:44)
[2025-01-26] MEDS ORDERED: MORPHINE SULFATE 2 MG/ML SYRINGE IV PRN (22:45)
[2025-01-27] VITALS (9 sets, daily range): BP systolic 140–171; BP diastolic 76–91; O2SAT 91–98
[2025-01-27 06:40] LABS: ALT/SGPT 441.0 U/L (12-78); AST/SGOT 655.0 U/L (15-37); BILIRUBIN TOTAL 0.74 mg/dL (0.3-1.2); BUN CREA RATIO 25.0 (7.0-25.0); CREATININE SERUM 3.2 mg/dL (0.55-1.02); GFR 15.27; GLOBULINA 4.2 G/DL (2.4-3.5); GLUCOSE FASTING 110.0 mg/dL (65-100); OSMOLALITY SERUM 308.0 MOSM/KG (275-295)
[2025-01-27] MEDS ORDERED: IRON FUM,PS/FOLIC ACID/VITC/B3 1 CAP CAPSULE PO SCH (09:00)
[2025-01-27] MEDS ORDERED: BUMETANIDE 2.5 MG/10 ML VIAL IV SCH (09:00)
[2025-01-27] MEDS ORDERED: Cyanocobalamin/Mecobalamin 1 TAB.SL SL SCH (09:00)
[2025-01-27] MEDS ORDERED: ALBUMIN HUMAN 0.25GM/ML (50ML) VIAL IV STA (10:22)
[2025-01-27] MEDS ORDERED: ALBUMIN HUMAN 100 ML VIAL IV STA (10:26)
[2025-01-28] VITALS (9 sets, daily range): BP systolic 146–185; BP diastolic 77–103; O2SAT 90–98
[2025-01-28 06:33] LABS: BASO % 0.4 % (0.1-1.2); EOS # 0.21 (0.04-0.54); EOS % 2.2 % (0.7-7.0); LYMPH # 0.98 (1.18-3.74); LYMPH % 10.4 % (19.3-53.1); MEAN PLATELET VOLUME 10.20 fl (9.4-12.4); MONO # 1.08 (0.24-0.82); MONO % 11.5 % (4.7-12.5); NEUT # 7.05 (1.56-6.13); NEUT % 75.1 % (34.0-71.1); RED CELL DISTRIBUTION WIDTH 14.5 % (11.6-14.4)
[2025-01-28 06:55] LABS: ALT/SGPT 475.0 U/L (12-78); AST/SGOT 970.0 U/L (15-37); BILIRUBIN TOTAL 0.97 mg/dL (0.3-1.2); BUN CREA RATIO 18.0 (7.0-25.0); CHOL HDL RATIO 2.2 (0-5.0); CREATININE SERUM 3.0 mg/dL (0.55-1.02); GFR 16.45; GLOBULINA 3.4 G/DL (2.4-3.5); GLUCOSE FASTING 166.0 mg/dL (65-100); HDL 43.0 mg/dl (40-60); LDL 37.0 mg/dl (0-130); OSMOLALITY SERUM 292.0 MOSM/KG (275-295); VLDL 15.0 (0-39)
[2025-01-28] MEDS ORDERED: EPOETIN ALFA-EPBX 10,000 UNIT/ML VIAL (Retacrit) SUBCUTANEO SCH (09:00)
[2025-01-28] MEDS ORDERED: levoFLOXacin IN DEXTROSE 5 % 5 MG/ML PIGGYBAG IV NR (09:00)
[2025-01-28] MEDS ORDERED: ALBUMIN HUMAN 100 ML VIAL IV ONE (11:00)
[2025-01-29] VITALS (7 sets, daily range): BP systolic 143–162; BP diastolic 83–93; O2SAT 94–98
[2025-01-29] MEDS ORDERED: levoFLOXacin IN DEXTROSE 5 % 500MG/100ML PIGGYBAG IV SCH (09:00)
[2025-01-29] MEDS ORDERED: ALBUMIN HUMAN 100 ML VIAL IV SCH ×2 (09:00→12:00)
[2025-01-29] MEDS ORDERED: NIFEDIPINE 60 MG TAB.SA.OSM PO SCH (09:00)
[2025-01-30] VITALS (9 sets, daily range): BP systolic 117–174; BP diastolic 71–94; O2SAT 90–98
[2025-01-30] MEDS ORDERED: levoFLOXacin IN DEXTROSE 5 % 500MG/100ML PIGGYBAG IV SCH (09:00)
[2025-01-30] MEDS ORDERED: EMOLLIENT COMBINATION NO.92 2.5 OZ BOTTLE TOP SCH (17:00)
[2025-01-31] VITALS (9 sets, daily range): BP systolic 110–160; BP diastolic 70–82; O2SAT 89–100
[2025-01-31 05:44] LABS: BASO % 0.2 % (0.1-1.2); EOS # 0.36 (0.04-0.54); EOS % 2.7 % (0.7-7.0); LYMPH # 0.89 (1.18-3.74); LYMPH % 6.6 % (19.3-53.1); MEAN PLATELET VOLUME 10.40 fl (9.4-12.4); MONO # 1.81 (0.24-0.82); NEUT # 10.31 (1.56-6.13); NEUT % 76.4 % (34.0-71.1); RED CELL DISTRIBUTION WIDTH 14.1 % (11.6-14.4)
[2025-01-31 06:44] LABS: MONO % 13.4 % (4.7-12.5)
[2025-01-31 06:46] LABS: BUN CREA RATIO 13.0 (7.0-25.0); GFR 9.02; GLUCOSE FASTING 197.0 mg/dL (65-100); OSMOLALITY SERUM 296.0 MOSM/KG (275-295)
[2025-01-31 07:11] LABS: CREATININE SERUM 5.05 mg/dL (0.55-1.02)
[2025-01-31] MEDS ORDERED: INSULIN LISPRO 1,000 UNIT/10 ML UNITS SUBCUTANEO SCH (08:00)
[2025-01-31] MEDS ORDERED: ONDANSETRON HCL 2 MG/ML VIAL IV STA (11:30)
[2025-01-31] MEDS ORDERED: ALBUMIN HUMAN-25 0.25GM/ML (50ML) VIAL IV SCH (12:00)
[2025-01-31] MEDS ORDERED: ALBUMIN HUMAN 100 ML VIAL IV SCH (12:00)
[2025-01-31] MEDS ORDERED: ONDANSETRON HCL 2 MG/ML VIAL IV SCH (21:00)
[2025-01-31] MEDS ORDERED: POTASSIUM BICARBONATE/CIT AC 25 MEQ TABLET.EFF PO SCH (21:00)
[2025-02-01] VITALS (9 sets, daily range): BP systolic 97–145; BP diastolic 62–83; O2SAT 90–98
[2025-02-01] MEDS ORDERED: ONDANSETRON HCL 2 MG/ML VIAL IV SCH
[2025-02-01] MEDS ORDERED: NIFEDIPINE 90 MG TAB.SA.OSM PO SCH (09:00)
[2025-02-01 23:14] LABS: BASO % 0.3 % (0.1-1.2); EOS # 0.42 (0.04-0.54); EOS % 2.7 % (0.7-7.0); LYMPH # 1.08 (1.18-3.74); LYMPH % 7.0 % (19.3-53.1); MEAN PLATELET VOLUME 12.00 fl (9.4-12.4); MONO # 2.24 (0.24-0.82); NEUT # 11.27 (1.56-6.13); NEUT % 73.3 % (34.0-71.1); RED CELL DISTRIBUTION WIDTH 14.8 % (11.6-14.4)
[2025-02-01 23:25] LABS: MONO % 14.6 % (4.7-12.5)
[2025-02-02] VITALS (9 sets, daily range): BP systolic 145–166; BP diastolic 84–91; O2SAT 90–99
[2025-02-02 14:52] LABS: BASO % 0.3 % (0.1-1.2); EOS # 0.46 (0.04-0.54); EOS % 3.3 % (0.7-7.0); LYMPH # 0.86 (1.18-3.74); LYMPH % 6.1 % (19.3-53.1); MEAN PLATELET VOLUME 11.80 fl (9.4-12.4); MONO # 2.00 (0.24-0.82); NEUT # 10.47 (1.56-6.13); NEUT % 74.0 % (34.0-71.1); RED CELL DISTRIBUTION WIDTH 15.0 % (11.6-14.4)
[2025-02-02 14:53] LABS: MONO % 14.2 % (4.7-12.5)
[2025-02-02] MEDS ORDERED: VITAMIN B COMPLEX/LYSINE 15 ML BLIST.PACK PO SCH (17:00)
[2025-02-02] MEDS ORDERED: LOSARTAN POTASSIUM 100 MG TABLET PO NR (18:00)
[2025-02-03] VITALS (10 sets, daily range): BP systolic 119–196; BP diastolic 65–108; O2SAT 94–98
[2025-02-03] MEDS ORDERED: METRONIDAZOLE/SODIUM CHLORIDE 500 MG/100 ML PIGGYBACK IV SCH ×2 (13:00)
[2025-02-03] MEDS ORDERED: LOSARTAN POTASSIUM 100 MG TABLET PO SCH (17:00)
[2025-02-03] MEDS ORDERED: POTASSIUM CHLORIDE IN WATER 100 ML IV NR (18:00)
[2025-02-03] MEDS ORDERED: NIFEDIPINE 30 MG TAB.SA.OSM PO SCH (21:00)
[2025-02-04] VITALS (7 sets, daily range): BP systolic 108–163; BP diastolic 61–85; O2SAT 90–97
[2025-02-04] MEDS ORDERED: ALBUMIN HUMAN-25 0.25GM/ML (50ML) VIAL IV SCH (09:00)
[2025-02-05] VITALS (9 sets, daily range): BP systolic 117–150; BP diastolic 68–91; O2SAT 93–98
[2025-02-05 06:47] LABS: BASO % 0.6 % (0.1-1.2); EOS # 0.54 (0.04-0.54); EOS % 4.0 % (0.7-7.0); LYMPH # 1.18 (1.18-3.74); LYMPH % 8.6 % (19.3-53.1); MEAN PLATELET VOLUME 12.70 fl (9.4-12.4); MONO # 2.10 (0.24-0.82); NEUT # 9.22 (1.56-6.13); NEUT % 67.5 % (34.0-71.1); RED CELL DISTRIBUTION WIDTH 16.3 % (11.6-14.4)
[2025-02-05 07:45] LABS: MONO % 15.4 % (4.7-12.5)
[2025-02-05 07:46] LABS: ERYTHROCYTE SEDIMENTATION RATE > 130 mm/hr (0-30)
[2025-02-06] VITALS (9 sets, daily range): BP systolic 135–150; BP diastolic 71–96; O2SAT 94–100
[2025-02-07] VITALS (8 sets, daily range): BP systolic 137–154; BP diastolic 75–79; O2SAT 95–100
[2025-02-07 06:55] LABS: BASO % 0.5 % (0.1-1.2); EOS # 0.53 (0.04-0.54); EOS % 3.8 % (0.7-7.0); LYMPH # 1.24 (1.18-3.74); LYMPH % 8.8 % (19.3-53.1); MEAN PLATELET VOLUME 12.00 fl (9.4-12.4); MONO # 2.17 (0.24-0.82); NEUT # 9.48 (1.56-6.13); NEUT % 67.6 % (34.0-71.1); RED CELL DISTRIBUTION WIDTH 17.2 % (11.6-14.4)
[2025-02-07 07:42] LABS: BAND MAN 1.0 %; EOSINOPHIL MAN 3.0 %; LYMPHOCYTE MAN 22.0 %; METAMYELOCYTE 1.0 %; MONO % 15.5 % (4.7-12.5); MONOCYTE MAN 4.0 %; NEUTROPHILS MAN 66.0 %
[2025-02-07 08:15] LABS: ALT/SGPT 197.0 U/L (12-78); AST/SGOT 287.0 U/L (15-37); BILIRUBIN TOTAL 1.24 mg/dL (0.3-1.2); GLOBULINA 4.1 G/DL (2.4-3.5); GLUCOSE FASTING 111.0 mg/dL (65-100); OSMOLALITY SERUM 286.0 MOSM/KG (275-295)
[2025-02-07 08:49] LABS: BUN CREA RATIO 7.0 (7.0-25.0); GFR 5.22
[2025-02-07 08:55] LABS: CREATININE SERUM 8.11 mg/dL (0.55-1.02)
[2025-02-07] MEDS ORDERED: MEROPENEM 500 MG/VIAL VIAL IV STA (09:29)
[2025-02-08 00:39] VITALS: O2SAT 96
[2025-02-08 01:41] VITALS: BP 112/63; O2SAT 94
[2025-02-08 08:37] VITALS: BP 153/78; O2SAT 95
[2025-02-08] MEDS ORDERED: MEROPENEM 500 MG/VIAL VIAL IV SCH (09:00)
[2025-02-08 09:29] VITALS: O2SAT 98
[2025-02-08] MEDS ORDERED: hydrALAZINE HCL 20 MG VIAL ONE (19:25)
[2025-02-08] MEDS ORDERED: MORPHINE SULFATE 2 MG/ML SYRINGE IV PRN (20:30)
[2025-02-08 20:53] VITALS: O2SAT 96
[2025-02-08 23:58] VITALS: BP 121/70; O2SAT 96
[2025-02-09] VITALS (9 sets, daily range): BP systolic 122–126; BP diastolic 59–76; O2SAT 89–99
[2025-02-10] VITALS (8 sets, daily range): BP systolic 102–150; BP diastolic 62–80; O2SAT 97–100
[2025-02-10 06:04] LABS: ALT/SGPT 120.0 U/L (12-78); AST/SGOT 159.0 U/L (15-37); BILIRUBIN TOTAL 0.89 mg/dL (0.3-1.2); GLOBULINA 4.4 G/DL (2.4-3.5); GLUCOSE FASTING 154.0 mg/dL (65-100); OSMOLALITY SERUM 283.0 MOSM/KG (275-295)
[2025-02-10 06:21] LABS: BUN CREA RATIO 6.0 (7.0-25.0); GFR 6.2
[2025-02-10 06:23] LABS: CREATININE SERUM 6.99 mg/dL (0.55-1.02)
[2025-02-10 06:45] LABS: BASO % 0.6 % (0.1-1.2); EOS # 0.64 (0.04-0.54); EOS % 4.1 % (0.7-7.0); LYMPH # 1.83 (1.18-3.74); LYMPH % 11.6 % (19.3-53.1); MEAN PLATELET VOLUME 10.70 fl (9.4-12.4); MONO # 2.16 (0.24-0.82); NEUT # 10.64 (1.56-6.13); NEUT % 67.3 % (34.0-71.1); RED CELL DISTRIBUTION WIDTH 17.3 % (11.6-14.4)
[2025-02-10 06:55] LABS: ERYTHROCYTE SEDIMENTATION RATE > 130 mm/hr (0-30)
[2025-02-10 07:22] LABS: MONO % 13.7 % (4.7-12.5)
[2025-02-10] MEDS ORDERED: VANCOMYCIN HCL 1,000 MG VIAL IV STA (11:30)
[2025-02-11 02:28] VITALS: BP 108/63; O2SAT 99
[2025-02-11 08:45] VITALS: BP 106/65; O2SAT 97
[2025-02-11] MEDS ORDERED: VANCOMYCIN HCL 5 MG/ML REDILUIDO IV SCH (09:00)
[2025-02-11 14:36] LABS: BASO % 0.5 % (0.1-1.2); EOS # 0.41 (0.04-0.54); EOS % 2.8 % (0.7-7.0); LYMPH # 1.17 (1.18-3.74); LYMPH % 8.1 % (19.3-53.1); MEAN PLATELET VOLUME 9.90 fl (9.4-12.4); MONO # 1.72 (0.24-0.82); MONO % 11.9 % (4.7-12.5); NEUT # 10.86 (1.56-6.13); NEUT % 74.9 % (34.0-71.1); RED CELL DISTRIBUTION WIDTH 17.7 % (11.6-14.4)
[2025-02-11 15:19] LABS: ALT/SGPT 97.0 U/L (12-78); AST/SGOT 113.0 U/L (15-37); BILIRUBIN TOTAL 0.81 mg/dL (0.3-1.2); GLOBULINA 4.3 G/DL (2.4-3.5); GLUCOSE FASTING 182.0 mg/dL (65-100); OSMOLALITY SERUM 281.0 MOSM/KG (275-295)
[2025-02-11 15:37] LABS: BUN CREA RATIO 6.0 (7.0-25.0); GFR 9.21
[2025-02-11 15:38] LABS: CREATININE SERUM 4.96 mg/dL (0.55-1.02)
[2025-02-11] MEDS ORDERED: Procardia Xl 30MG TA PO (16:02)
[2025-02-11] MEDS ORDERED: INTEGRA F CAPS1 EACH PO (16:02)
[2025-02-11] MEDS ORDERED: B Complex PO (16:02)
[2025-02-11] MEDS ORDERED: HYDRALAZINE HCL25 MG PO (16:02)
[2025-02-11] MEDS ORDERED: Lantus 1000 UNITS/10 SUBCUTANEO (16:02)
[2025-02-11] MEDS ORDERED: LOPRESSOR25 MG PO (16:02)
[2025-02-11] MEDS ORDERED: LIPITOR40 M1 PO (16:02)
[2025-02-11] MEDS ORDERED: LOSARTAN POTAS100 MG PO (16:02)
[2025-02-11] MEDS ORDERED: Neurin-Sl Tablet Sl SL (16:02)
[2025-02-11] MEDS ORDERED: INSULIN LI100 UNIT/1 SUBCUTANEO (16:02)
[2025-02-11] MEDS ORDERED: APETIGEN P12.5 MG/15 PO (16:02)
[2025-02-11] MEDS ORDERED: PROTEINEX-18 LI30 ML PO (16:02)
[2025-02-11 16:06] VITALS: O2SAT 100
== END 2025-02-11 17:34 | disposition home or self-care (01) | DRG 602 ==
LOC: ER 11:02 → MEDJ 16:19 → MEDI 16:19
PROVIDERS: General Practice; Internal Medicine; Internal Medicine Endocrinology, Diabetes & Metabolism; Internal Medicine Geriatric Medicine; Internal Medicine Infectious Disease; Internal Medicine Nephrology; Student in an Organized Health Care Education/Training Program; ADMIT Internal Medicine; ATTEND Internal Medicine
PROC: B54MZZZ Ultrasonography of Right Upper Extremity Veins (ICD-10-PCS; 2025-01-12)
PROC: BP3CZZZ Magnetic Resonance Imaging (MRI) of Right Hand/Finger Joint (ICD-10-PCS; principal; 2025-01-13)
PROC: 02HV33Z Insertion of Infusion Device into Superior Vena Cava, Percutaneous Approach (ICD-10-PCS; 2025-01-14)
PROC: 3E0F7GC Introduction of Other Therapeutic Substance into Respiratory Tract, Via Natural or Artificial Opening (ICD-10-PCS; 2025-01-16)
PROC: BW40ZZZ Ultrasonography of Abdomen (ICD-10-PCS; 2025-01-17)
PROC: BP4NZZZ Ultrasonography of Right Hand (ICD-10-PCS; 2025-01-17)
PROC: 4A12X4Z Monitoring of Cardiac Electrical Activity, External Approach (ICD-10-PCS; 2025-01-17)
PROC: CB121ZZ Planar Nuclear Medicine Imaging of Lungs and Bronchi using Technetium 99m (Tc-99m) (ICD-10-PCS; 2025-01-18)
PROC: B246ZZZ Ultrasonography of Right and Left Heart (ICD-10-PCS; 2025-01-19)
PROC: BW40ZZZ Ultrasonography of Abdomen (ICD-10-PCS; 2025-01-23)
PROC: 30233N1 Transfusion of Nonautologous Red Blood Cells into Peripheral Vein, Percutaneous Approach (ICD-10-PCS; 2025-01-25)
PROC: 05HM33Z Insertion of Infusion Device into Right Internal Jugular Vein, Percutaneous Approach (ICD-10-PCS; 2025-01-26)
PROC: 5A1D70Z Performance of Urinary Filtration, Intermittent, Less than 6 Hours Per Day (ICD-10-PCS; 2025-01-27)
PROC: 5A1D70Z Performance of Urinary Filtration, Intermittent, Less than 6 Hours Per Day (ICD-10-PCS; 2025-02-02)
PROC: 5A1D70Z Performance of Urinary Filtration, Intermittent, Less than 6 Hours Per Day (ICD-10-PCS; 2025-02-09)
DX: L03.113 Cellulitis of right upper limb (principal); N18.6 End stage renal disease; N17.8 Other acute kidney failure; I12.0 Hypertensive chronic kidney disease with stage 5 chronic kidney disease or end stage renal disease; R60.0 Localized edema; E11.22 Type 2 diabetes mellitus with diabetic chronic kidney disease; I12.9 Hypertensive chronic kidney disease with stage 1 through stage 4 chronic kidney disease, or unspecified chronic kidney disease; Z79.4 Long term (current) use of insulin; E11.65 Type 2 diabetes mellitus with hyperglycemia; D64.9 Anemia, unspecified; E78.49 Other hyperlipidemia; J40 Bronchitis, not specified as acute or chronic; E03.8 Other specified hypothyroidism; F43.20 Adjustment disorder, unspecified; Z88.0 Allergy status to penicillin; Z99.2 Dependence on renal dialysis; R74.01 Elevation of levels of liver transaminase levels
CPT/HCPCS: 73223